=== PATIENT | male | born 1990 | race Caucasian/White ===

== ENCOUNTER 2016-12-06 20:54 | Emergency (ER) | payer BC, OTHER | END 2016-12-06 21:45 | disposition left against medical advice (07) | LOC: JP.ED 20:54 | DX: Z53.21 Procedure and treatment not carried out due to patient leaving prior to being seen by health care provider (principal) ==

== ENCOUNTER 2016-12-07 01:31 | Emergency (ER) | payer BC, OTHER ==
[2016-12-07 01:46] VITALS: BP 157/77
--- NOTE | 2016-12-07 01:59 | EDM.PDOC ---
[id number] NEEDLE STICK Time Seen by Provider: 12/07/16 01:50 Source of Information: Reports: Patient History Limitations: Reports: No limitations - History of Present Illness INITIAL COMMENTS - FREE TEXT/NARRATIVE: 26-year-old male who received a needle stick while collecting garbage at the clinic on his left index finger. He has a very small puncture in the pulp of the finger which bled briefly. He is otherwise healthy. The source is unknown whether there was patient exposure. Severity: mild Associated Symptoms: Reports: denies other symptoms - Related Data Allergies Allergy/AdvReac Type Severity Reaction Status Date / Time Influenza Virus Vaccines Allergy Fever Verified 12/07/16 01:44 Home Meds: Home Meds Ibuprofen 200 mg PO Q6HR 09/13/16 [History] Past Medical History HEENT History: Reports: Impaired vision Other HEENT History: wears glasses Cardiovascular History: Reports: Heart murmur Neurological History: Reports: Migraines Psychiatric History: Reports: Depression, Suicide attempt - Infectious Disease History Infectious Disease History: Reports: Chicken pox - Past Surgical History Musculoskeletal Surgical History: Reports: Arthroscopic knee Social & Family History - Tobacco Use Smoking Status *Q: Never Smoker Second Hand Smoke Exposure: Yes - Caffeine Use Caffeine Use: Reports: Soda - Alcohol Use Days Per Week of Alcohol Use: 0 - Recreational Drug Use Recreational Drug Use: No ED ROS GENERAL - Review of Systems Review Of Systems: ROS reveals no pertinent complaints other than HPI. ED EXAM, GENERAL - Physical Exam Exam: See Below Exam Limited By: No limitations General Appearance: alert, no apparent distress Respiratory/Chest: no respiratory distress Extremities: other (On the left hand there is evidence of a tiny puncture wound on the pulp of the finger.) Course - Vital Signs Last Recorded V/S: Last Vital Signs Temp 97 F 12/07/16 01:46 Pulse 84 12/07/16 01:46 Resp 16 12/07/16 01:46 BP 157/77 H 12/07/16 01:46 Pulse Ox 97 12/07/16 01:46 - Orders/Labs/Meds Orders: Active Orders 24 hr Category Date Time Status HBS AB [REF] Routine Lab 12/07/16 02:44 Received HEPATITIS B SURFACE ANTIGEN [REF] Routine Lab 12/07/16 02:44 Received HEPATITIS C ANTIBODY [REF] Routine Lab 12/07/16 02:44 Received Labs: Laboratory Tests 12/07/16 Range/Units 02:44 HIV-1 Ab Rapid Screen Non-reactive (NON-REACT.) - Re-Assessments/Exams Free Text/Narrative Re-Assessment/Exam: 12/07/16 01:55 Labs were ordered per protocol. Records will be passed on to infection control tomorrow and the next . Prophylaxis was discussed with the patient and declined at this time. Departure - Departure Time of Disposition: 02:10 Disposition: Home, Self-Care 01 Condition: good Clinical Impression: Needle stick injury of finger of left hand Qualifiers: Encounter type: initial encounter Qualified Code(s): S61.239A - Puncture wound without foreign body of unspecified finger without damage to nail, initial encounter Instructions: Needlestick Injury, [id number] Referrals: Ashleigh Patel PA [Primary Care Provider] - Forms: ED Department Discharge Care Plan Goals: Followup with the Hospital infection control next week to discuss lab results. - My Orders Last 24 Hours: My Active Orders 12/07/16 02:44 HBS AB [REF] Routine HEPATITIS B SURFACE ANTIGEN [REF] Routine HEPATITIS C ANTIBODY [REF] Routine - Assessment/Plan Last 24 Hours: My Active Orders 12/07/16 02:44 HBS AB [REF] Routine HEPATITIS B SURFACE ANTIGEN [REF] Routine HEPATITIS C ANTIBODY [REF] Routine
== END 2016-12-07 02:09 | disposition home or self-care (01) ==
LOC: JP.ED 01:31
DX: S61.231A Puncture wound without foreign body of left index finger without damage to nail, initial encounter (principal); Z88.8 Allergy status to other drugs, medicaments and biological substances; W27.3XXA Contact with needle (sewing), initial encounter
CPT/HCPCS: 36415; 86706; 86803; 87340; 87449; 99283